=== PATIENT | female | born 1930 | race Caucasian/White ===

== ENCOUNTER 2017-03-10 07:38 | Day surgery (SDC) | payer MEDICARE, BC ==
[~2017-03-10 07:38] MED LIST: Lactated Ringers 1,000 ML IV SCH
[2017-03-10] MEDS ORDERED: Propofol 200 MG/20 ML SDV ONE (09:38)
[2017-03-10 10:29] VITALS: BP 142/61
--- NOTE | 2017-03-10 16:11 | OR ---
PREOPERATIVE DIAGNOSIS: Unexplained weight loss. POSTOPERATIVE DIAGNOSES: Moderate hiatal hernia and mild gastritis. PROCEDURE PROPOSED: Upper gastrointestinal panendoscopy with duodenal and antral biopsies. INDICATION: This is an 86-year-old female who has had an unexplained 20-pound weight loss despite having a good appetite. It was felt that she should be gastroscoped to rule out any upper GI pathology. She does have chronic constipation. She does have some mild acid indigestion symptoms and has been on Prilosec for the last 3 weeks. She also does have some lower abdominal pain, and she has some questions about her ovaries, but it was felt that we should proceed with EGD today. TECHNIQUE: The patient was brought to the endoscopy suite, placed in left lateral decubitus position. She was sedated per [employer] with propofol. The flexible video gastroscope was then passed transorally and under visualization advanced well into the duodenum. Duodenal biopsies were obtained to rule out bowel disease. The antrum appeared very healthy, some antral biopsies were taken to rule out H. pylori. She was noted to have a moderate-sized hiatal hernia with approximately 1/3rd of her stomach above the diaphragm, but there was no significant or abnormal inflammation of the herniated portion of the stomach, and there were no signs of any ulcers or masses or other abnormalities. The GE junction seemed to be well demarcated. The esophagus was slightly tortuous because of it being shortened due to the hiatal hernia, but there was no evidence of any GERD or Schatzki's ring or stenosis, and the esophagus otherwise was unremarkable. The scope was then withdrawn. She tolerated the procedure well. IMPRESSION: Moderate-sized hiatal hernia without other abnormality. PLAN: I do not feel that there is any cause for weight loss in her upper GI system. With her unexplained weight loss and some lower abdominal pain, I feel that we should proceed with a CAT scan of her abdomen and with her coughing up a little blood recently, we should also do a CAT scan of her chest and I will have her follow up with Dr. Blunt after those tests for further workup. SCM: 03/10/2017 10:05:11 MODL: 03/10/2017 11:12:56 /[id number]
--- NOTE | 2017-03-19 08:01 | LETTER ---
03/17/2017 RE: STIVEN ADAN : 1930 Dear Stiven: The biopsies taken from your small intestine revealed no abnormalities indicating you do not have any type of bowel disease such as celiac disease or malabsorption problems. I also did biopsies from your stomach, which revealed that you do not have the bacteria known as H. pylori in your stomach. You had some very minimal chronic gastritis, which I feel is insignificant and not creating your problems. I have not received the results of your CAT scan, but I would have you followup with Dr. Blunt to go over the results of that at your earliest convenience. Respectfully,
== END 2017-03-10 11:20 | disposition home or self-care (01) ==
LOC: VM.SDS 07:38
PROVIDERS: ATTEND Surgery
DX: K29.50 Unspecified chronic gastritis without bleeding (principal); K44.9 Diaphragmatic hernia without obstruction or gangrene; I10 Essential (primary) hypertension; J44.9 Chronic obstructive pulmonary disease, unspecified; F41.9 Anxiety disorder, unspecified; Z88.1 Allergy status to other antibiotic agents; Z88.8 Allergy status to other drugs, medicaments and biological substances; Z98.890 Other specified postprocedural states; Z79.899 Other long term (current) drug therapy
CPT/HCPCS: 00740; 43239; J2704; J7120; 88305